=== PATIENT | male | born 1980 | race Caucasian/White ===

== ENCOUNTER 2021-01-15 17:23 | Inpatient (IN) | payer OTHER ==
[~2021-01-15] VITALS: Ht 177.8 cm; Wt 68.0 kg
[2021-01-15] MEDS ORDERED: SEROQUEL50 MG PO (18:15)
[2021-01-15 19:00] LABS: BASO # 0.1 10*3/uL (0.0-0.1); BASO % 0.4 % (0.0-1.0); EOS # 0.2 10*3/uL (0.0-0.4); HEMATOCRIT 45.3 % (42.0-52.0); LYMPH # 3.5 10*3/uL (1.3-4.4); LYMPH % 30.6 % (27.0-41.0); MEAN CELL VOLUME 90.6 fl (80.0-94.0); MEAN PLATELET VOLUME 9.8 fl (9.6-12.3); MONO # 0.7 10*3/uL (0.1-1.0); MONO % 6.4 % (3.0-9.0); NEUT # 6.9 10*3/uL (2.3-7.9); NEUT % 60.4 % (47.0-73.0); PLATELET COUNT AUTOMATED 358 10*3/uL (130-400); RED CELL DISTRI WIDTH 12.5 % (0-14.5); WHITE BLOOD COUNT 11.4 10*3/uL (4.8-10.8)
[2021-01-15 19:06] LABS: BILIRUBIN Negative (Negative); BLOOD Negative (Negative); CLARITY Clear (Clear); COLOR Yellow (Yellow); GLUCOSE Negative (Negative); KETONE Negative (Negative); LEUKO ESTERASE Trace (Negative); NITRITE Negative (Negative); PH 7.5 (4.5-8.0); SPECIFIC GRAVITY 1.025 (1.001-1.030); UROBILINOGEN 0.2 E.U./dl (0.0-1.0)
[2021-01-15 19:11] LABS: BACTERIA TRACE; EPITHELIAL CELLS 0-2; MUCOUS TRACE; RBC 0-2 rbc/hpf (0-2)
[2021-01-15 19:11] LABS: INTERNATIONAL NORM RATIO 0.9 (2.0-3.5)
[2021-01-15 19:14] LABS: URINE AMPHETAMINES > 1000 (1000ng/ml); URINE BARBITURATES < 200 (200ng/ml); URINE BENZODIAZEPINES < 200 (200ng/ml); URINE CANNABINOIDS (THC) < 50 (50ng/ml); URINE COCAINE < 300 (300ng/ml); URINE METHADONE < 300 (300ng/ml); URINE OPIATES < 300 (300ng/ml)
[2021-01-15 19:15] LABS: URINE PHENCYCLIDINE < 25 (25ng/ml)
[2021-01-15 19:18] LABS: ALBUMIN 3.7 gm/dl (3.1-4.5); ALKALINE PHOSPHATASE 74 U/L (45-117); BUN 14 mg/dl (7-24); CHLORIDE 107 mmol/L (98-107); CREATININE 1.22 mg/dL (0.70-1.30); POTASSIUM 4.2 mmol/L (3.5-5.1); SGOT/AST 24 IU/L (3-35); SGPT/ALT 39 U/L (12-78); SODIUM 140 mmol/L (136-145); TOTAL PROTEIN 7.6 gm/dL (6.4-8.2)
[2021-01-15 19:19] LABS: ETHYL ALCOHOL < 3.0 mg/dl (<3)
[2021-01-15 20:00] VITALS: BP 127/89
[2021-01-16] VITALS: BP 113/64
[2021-01-16 08:00] VITALS: BP 105/62
[2021-01-16 12:00] VITALS: BP 112/75
[2021-01-16 16:00] VITALS: BP 94/52
[2021-01-16 20:00] VITALS: BP 112/61
[2021-01-17] VITALS: BP 113/65
[2021-01-17 08:00] VITALS: BP 97/58
[2021-01-17] MEDS ORDERED: DICYCLOMINE HCL20 MG PO (10:38)
[2021-01-17] MEDS ORDERED: NATURE'S BLEND F1 MG PO (10:38)
[2021-01-17] MEDS ORDERED: ATARAX,VISTARIL50 MG PO (10:38)
[2021-01-17] MEDS ORDERED: METHOCARBAMOL750 M1 PO (10:38)
[2021-01-17] MEDS ORDERED: THERA TABLET400 MCG PO (10:38)
[2021-01-17] MEDS ORDERED: MOTRIN 600 MG E4 TAB PO (10:38)
[2021-01-17] MEDS ORDERED: VITAMIN B-1100 M1 PO (10:38)
[2021-01-17 12:00] VITALS: BP 103/64
== END 2021-01-17 16:00 | disposition home or self-care (01) | DRG 776 ==
LOC: 5E 17:23
PROVIDERS: Social Worker Clinical; ADMIT Internal Medicine; ATTEND Internal Medicine
DX: F15.13 Other stimulant abuse with withdrawal (principal); F90.9 Attention-deficit hyperactivity disorder, unspecified type; F41.1 Generalized anxiety disorder; F17.210 Nicotine dependence, cigarettes, uncomplicated; Z71.6 Tobacco abuse counseling

== ENCOUNTER 2022-04-09 17:23 | Inpatient (IN) | payer OTHER ==
[~2022-04-09] VITALS: Ht 25.4 cm; Wt 66.9 kg
[~2022-04-09 17:23] MED LIST: ATARAX,VISTARIL50 MG PO; DICYCLOMINE HCL20 MG PO; METHOCARBAMOL750 M1 PO; MOTRIN 600 MG E4 TAB PO; NATURE'S BLEND F1 MG PO; SEROQUEL50 MG PO; THERA TABLET400 MCG PO; VITAMIN B-1100 M1 PO
[2022-04-09 18:09] VITALS: BP 129/90
[2022-04-09] MEDS ORDERED: DEXTROAMPH SACC20 M1 PO (19:30)
[2022-04-09] MEDS ORDERED: TRINTELLIX10 MG PO (19:30)
[2022-04-09 19:43] LABS: BASO % 0.4 % (0.0-1.0); EOS # 0.2 10*3/uL (0.0-0.4); HEMATOCRIT 41.4 % (42.0-52.0); LYMPH # 3.2 10*3/uL (1.3-4.4); LYMPH % 35.2 % (27.0-41.0); MEAN CELL VOLUME 90.4 fl (80.0-94.0); MEAN CORPUSCULAR HGB 29.5 pg (27.0-31.0); MEAN CORPUSCULAR HGB CONC 32.6 g/dl (33.0-37.0); MONO # 0.5 10*3/uL (0.1-1.0); NEUT % 56.2 % (47.0-73.0); PLATELET COUNT AUTOMATED 283 10*3/uL (130-400); RED BLOOD COUNT 4.58 10*6/uL (4.50-5.90); RED CELL DISTRI WIDTH 12.5 % (0-14.5)
[2022-04-09 19:57] LABS: ALKALINE PHOSPHATASE 67 U/L (45-117); BUN 18 mg/dl (7-24); CHLORIDE 106 mmol/L (98-107); CREATININE 1.02 mg/dL (0.70-1.30); POTASSIUM 3.5 mmol/L (3.5-5.1); SGOT/AST 25 IU/L (3-35); SGPT/ALT 33 U/L (12-78); SODIUM 139 mmol/L (136-145); TOTAL PROTEIN 7.1 gm/dL (6.4-8.2)
[2022-04-09 19:58] LABS: ACETAMINOPHEN (TYLENOL) < 5.0 ug/ml (10-30)
[2022-04-09 20:00] LABS: ETHYL ALCOHOL < 3.0 mg/dl (<3)
[2022-04-09 20:27] LABS: BILIRUBIN Negative (Negative); BLOOD Negative (Negative); CLARITY Clear (Clear); COLOR Yellow (Yellow); GLUCOSE Negative (Negative); KETONE Trace (Negative); LEUKO ESTERASE Trace (Negative); NITRITE Negative (Negative); PH 5.5 (4.5-8.0); SPECIFIC GRAVITY >= 1.030 (1.001-1.030)
[2022-04-09 20:36] LABS: URINE AMPHETAMINES > 1000 (1000ng/ml); URINE BARBITURATES < 200 (200ng/ml); URINE BENZODIAZEPINES < 200 (200ng/ml); URINE CANNABINOIDS (THC) > 50 (50ng/ml); URINE COCAINE < 300 (300ng/ml); URINE METHADONE < 300 (300ng/ml); URINE OPIATES < 300 (300ng/ml)
[2022-04-09 20:39] LABS: URINE PHENCYCLIDINE < 25 (25ng/ml)
[2022-04-09 20:42] LABS: BACTERIA 1+; MUCOUS 2+; RBC 0-2 rbc/hpf (0-2)
[2022-04-10 05:52] VITALS: BP 127/53
[2022-04-10 06:02] LABS: BUN 17 mg/dl (7-24); CHLORIDE 108 mmol/L (98-107); CREATININE 0.91 mg/dL (0.70-1.30); POTASSIUM 3.9 mmol/L (3.5-5.1); SODIUM 141 mmol/L (136-145)
[2022-04-10 06:27] LABS: CPK 289 U/L (39-308)
[2022-04-10 07:33] VITALS: BP 111/69
[2022-04-10 09:55] VITALS: BP 120/72
[2022-04-10 16:00] VITALS: BP 116/72
[2022-04-10 20:02] VITALS: BP 120/73
[2022-04-11 00:03] VITALS: BP 122/76
[2022-04-11 08:00] VITALS: BP 105/65
[2022-04-11 12:00] VITALS: BP 112/64
[2022-04-11 16:00] VITALS: BP 129/79
[2022-04-11 20:00] VITALS: BP 117/64
[2022-04-12 08:00] VITALS: BP 124/94
[2022-04-12] MEDS ORDERED: ATARAX,VISTARIL50 MG PO (11:01)
[2022-04-12] MEDS ORDERED: THERA TABLET400 MCG PO (11:01)
[2022-04-12 12:00] VITALS: BP 113/74
== END 2022-04-12 12:38 | disposition home or self-care (01) | DRG 773 ==
LOC: ED 17:23 → 5E 21:20 → EDHOLD 21:20 → 5E 04-10 08:54
PROVIDERS: Emergency Medicine; Family Medicine; ADMIT Internal Medicine; ATTEND Internal Medicine
DX: F11.23 Opioid dependence with withdrawal (principal); F15.10 Other stimulant abuse, uncomplicated; F14.10 Cocaine abuse, uncomplicated; F17.210 Nicotine dependence, cigarettes, uncomplicated; D64.9 Anemia, unspecified; E87.8 Other disorders of electrolyte and fluid balance, not elsewhere classified; R73.9 Hyperglycemia, unspecified; F90.9 Attention-deficit hyperactivity disorder, unspecified type; F41.1 Generalized anxiety disorder; Z71.6 Tobacco abuse counseling; Z79.1 Long term (current) use of non-steroidal anti-inflammatories (NSAID); Z79.899 Other long term (current) drug therapy